=== PATIENT | female | born 1935 | race African-American/Black ===

== ENCOUNTER 2016-06-05 22:33 | Emergency (ER) | payer OTHER ==
[2016-06-05 21:06] LABS: BASOPHIL# 0.1 X10e3 (0-0.3); BASOPHIL% 0.6 % (0-2.5); EOSINOPHIL# 0.1 X10e3 (0-0.7); EOSINOPHIL% 0.5 % (0.0-7.0); HEMOGLOBIN 14.6 gm/dL (12.0-16.0); LYMPHOCYTE% 20.6 % (17.0-45.0); MEAN CELL VOLUME 84.2 FL (83-96); MEAN CORPUSCULAR HEMOGLOBIN 27.3 PG (28-34); MEAN CORPUSCULAR HGB CONC 32.5 g/dL (30-36); MEAN PLATELET VOLUME 8.1 FL (6.5-11.5); MONOCYTE% 9.8 % (3.0-12.0); NEUTROPHIL# 6.7 X10e3 (1.5-7.1); NEUTROPHIL% 68.5 % (40-75); PLATELET COUNT 268 X10e3 (140-420); RED BLOOD COUNT 5.35 X10e (3.90-5.30); RED CELL DISTRIBUTION WIDTH 13.6 % (11.0-15.5); WHITE BLOOD COUNT 9.8 X10e3 (4.0-10.5)
[2016-06-05 21:09] LABS: DIFF IND NO
[2016-06-05 21:20] LABS: INR 1.1; PARTIAL THROMBOPLASTIN TIME 26.9 SECONDS (23.5-31.3); PROTHROMBIN TIME (PATIENT) 11.8 SECONDS (9.6-11.5)
[2016-06-05 21:29] LABS: ALBUMIN SERUM 3.7 g/dL (3.5-5.0); BILIRUBIN, DIRECT 0.1 mg/dL (0.0-0.2); BILIRUBIN,INDIRECT 0.5 mg/dL (0.0-0.9); BILIRUBIN,TOTAL 0.6 mg/dL (0.2-2.0); BUN/CREATININE RATIO 14.28; CALCIUM SERUM 9.2 mg/dL (8.4-10.2); CREATININE SERUM 0.7 mg/dL (0.6-1.4); GLOM FILT RATE Estimated 93.5 mL/min (>60); POTASSIUM 3.5 mmol/L (3.5-5.1); PROTEIN TOTAL SERUM 7.8 g/dL (6.0-8.3)
[~2016-06-05 22:33] MED LIST: ADVIL200 M3 PO; ASPIRIN81 MG PO; BENZONATATE PO; DOCUSATE SODIU100 MG PO; DUONEB 2.5-0.5 M3 ML NEB; HEARTBURN150 MG PO; LASIX20 MG PO; LEVOFLOXACIN750 MG PO; LOSARTAN POTASS25 MG PO; LOVASTATIN20 M1 PO; MOTION SICKNESS25 M4 PO; NORVASC10 MG PO; POTASSIUM CHLO20 ME1 PO; PREDNISONE PO; PROAIR HFA8.5 GM INH; TUSSIN COU15 MG/5 ML PO; ZITHROMAX1 G/PKT PO
== END 2016-06-05 22:45 | disposition home or self-care (01) ==
LOC: CED 22:33
PROVIDERS: Emergency Medicine
DX: K64.4 Residual hemorrhoidal skin tags (principal); K92.2 Gastrointestinal hemorrhage, unspecified; I10 Essential (primary) hypertension; F03.90 Unspecified dementia, unspecified severity, without behavioral disturbance, psychotic disturbance, mood disturbance, and anxiety
CPT/HCPCS: 36415; 80048; 80076; 85025; 85610; 85730; 86850; 86900; 86901; 99283